=== PATIENT | female | born 1995 ===

== ENCOUNTER 2017-08-06 07:55 | Emergency (ER) | payer OTHER ==
[2017-08-06 07:59] VITALS: BMI 31.6
[2017-08-06 08:00] VITALS: BP 122/85; PULSE 67; RESP 16; TEMP 98.3; O2SAT 97
--- NOTE | 2017-08-06 08:13 | ED PDOC ---
HPI: Abdomen Time Seen by Provider: 08/06/17 08:01 Chief Complaint (Nursing): Abdominal Pain Chief Complaint (Provider): Abdominal Pain History Per: Patient History/Exam Limitations: no limitations Onset/Duration Of Symptoms: Other (x since this morning) Current Symptoms Are (Timing): Still Present Additional Complaint(s): 22-year-old female presents to ED with right flank and RLQ pain since this morning associated with nausea. (-) urinary symptoms, (-) diarrhea. PMD: Provider TBD Past Medical History Reviewed: Historical Data, Nursing Documentation, Vital Signs Vital Signs: Last Vital Signs Temp 98.3 F 08/06/17 07:59 Pulse 67 08/06/17 07:59 Resp 16 08/06/17 07:59 BP 122/85 08/06/17 07:59 Pulse Ox 97 08/06/17 09:49 - Medical History PMH: No Chronic Diseases - Surgical History Surgical History: Appendectomy (s/p) - Family History Family History: States: Unknown Family Hx - Social History Current smoker - smoking cessation education provided: No Alcohol: None Drugs: Denies - Home Medications Home Medications: Ambulatory Orders Medication Instructions Recorded traMADol [Ultram] 50 mg PO Q8 #10 tab 08/06/17 - Allergies Allergies/Adverse Reactions: Allergies Allergy/AdvReac Type Severity Reaction Status Date / Time aspirin Allergy RASH Verified 08/06/17 08:08 Review of Systems ROS Statement: Except As Marked, All Systems Reviewed And Found Negative Gastrointestinal: Positive for: Nausea, Abdominal Pain (RLQ pain), Other (Right flank pain). Negative for: Diarrhea Genitourinary Female: Negative for: Dysuria, Hematuria Physical Exam - Reviewed Nursing Documentation Reviewed: Yes Vital Signs Reviewed: Yes - Physical Exam Cardiovascular/Chest: Positive for: Regular Rate, Rhythm Respiratory: Positive for: Normal Breath Sounds. Negative for: Respiratory Distress Gastrointestinal/Abdominal: Positive for: Tenderness (Mild right mid and lower quadrant tenderness). Negative for: Other (Shepard's sign) Back: Positive for: Normal Inspection. Negative for: L CVA Tenderness, R CVA Tenderness Extremity: Negative for: Tenderness, Swelling - Laboratory Results Result Diagrams: 08/06/17 08:28 08/06/17 08:28 - ECG O2 Sat by Pulse Oximetry: 97 (RA) Pulse Ox Interpretation: Normal Medical Decision Making Medical Decision Making: Time: 08:07 Plan: - CMP - ED Urine Dipstick - ED Urine - CBC - Abdomen Limited (GB Included) Ultrasound - Transvaginal Ultrasound Time: 09:31 Abdomen Limited (GB Included) Ultrasound FINDINGS: LIVER: Measures 16.7 cm in length. Normal echogenicity of the liver parenchyma. No mass. No intrahepatic bile duct dilatation. GALLBLADDER: Unremarkable. No gallstones. . No evidence of pericholecystic fluid or sonographic Shepard's sign COMMON BILE DUCT: Measures 3.9 mm. No stones. No dilatation. PANCREAS: Unremarkable as visualized. No mass. No ductal dilatation. RIGHT KIDNEY: Measures 11.9 x 4.8 x 4.4 cm in length. Normal echogenicity. No calculus, mass, or hydronephrosis. AORTA: No aneurysmal dilatation. IVC: Unremarkable. OTHER FINDINGS: None . IMPRESSION: No acute findings. Time: 09:38 Transvaginal Ultrasound FINDINGS: UTERUS: Anteverted measuring approximately 6.9 x 5.2 x 3.7 cm. Cm. Normal in size and appearance. No fibroid or other mass lesion seen. ENDOMETRIUM: Measures 1.2 mm in diameter. Unremarkable. CERVIX: There is an approximately 1.4 x 0.74 cm nabothian cyst present. RIGHT OVARY: Measures 4.3 x 3.8 x 2.1 cm. No solid mass. Normal flow. . Least 2 para ovarian cyst present 1st measuring 1.5 cm x 1.1 x 1.2 in greatest dimension and the 2nd measuring 1.2 x 1.0 x 0.9 cm. Small amount of paraovarian fluid . LEFT OVARY: Measures 2.6 x 2.7 x 1.6 cm. No solid mass. Normal flow. Small paraovarian cyst measuring 2.3 x 1.7 x 1.6 cm FREE FLUID: No significant free fluid noted. OTHER FINDINGS: None. IMPRESSION: Small bilateral paraovarian cysts. Small amount of right paraovarian fluid. 1.2 cm Scribe Attestation: Documented by Reuben Alcaraz, acting as a scribe for Aron Myers MD Provider Scribe Attestation: All medical record entries made by the Scribe were at my direction and personally dictated by me. I have reviewed the chart and agree that the record accurately reflects my personal performance of the history, physical exam, medical decision making, and the department course for this patient. I have also personally directed, reviewed, and agree with the discharge instructions and disposition. Disposition - Clinical Impression Clinical Impression: Ovarian cyst - Patient ED Disposition Is Patient to be Admitted: No Counseled Patient/Family Regarding: Studies Performed, Diagnosis, Need For Followup, Rx Given - Disposition Referrals: [facility] [Outside] Disposition: Routine/Home Disposition Time: 10:07 Condition: FAIR Prescriptions: traMADol [Ultram] 50 mg PO Q8 #10 tab Instructions: Ovarian Cysts Forms: [facility] (Estonian) Print Language: KYRGYZ
[2017-08-06 08:39] LABS: BASO % 0.4 % (0.0-2.0); EOS # 0.1 K/uL (0.0-0.7); EOS % 0.9 % (0.0-4.0); HEMOGLOBIN 14.1 g/dL (12.0-16.0); LYMPH # 1.5 K/uL (1.0-4.3); LYMPH % 13.4 % (20.0-40.0); MEAN CELL VOLUME 90.9 fl (81.0-99.0); MEAN CORPUSCULAR HEMOGLOBIN 30.6 pg (27.0-31.0); MEAN CORPUSCULAR HGB CONC 33.7 g/dL (33.0-37.0); MEAN PLATELET VOLUME 7.1 fl (7.2-11.7); MONO # 0.4 K/uL (0.0-0.8); MONO % 3.8 % (0.0-10.0); NEUT # 9.2 K/uL (1.8-7.0); NEUT % 81.5 % (50.0-75.0); RBC 4.62 Mil/uL (3.80-5.20); RED CELL DISTRIBUTION WIDTH 12.7 % (11.5-14.5); WHITE BLOOD COUNT 11.3 K/uL (4.8-10.8)
[2017-08-06 08:51] LABS: ALB/GLOB RATIO 1.3 (1.0-2.1); ALBUMIN 4.3 g/dL (3.5-5.0); ALT/SGPT 31 U/L (9-52); AST/SGOT 22 U/L (14-36); BLOOD UREA NITROGEN 16 mg/dl (7-17); CALCIUM 9.3 mg/dL (8.4-10.2); GFR AFRICAN-AMERICAN > 60; GFR NON-AFRICAN AMERICAN > 60
--- NOTE | 2017-08-06 09:33 | US ---
HISTORY: Right flank pain. COMPARISON: None. TECHNIQUE: Sonographic evaluation of the right upper quadrant of the abdomen. FINDINGS: LIVER: Measures 16.7 cm in length. Normal echogenicity of the liver parenchyma. No mass. No intrahepatic bile duct dilatation. GALLBLADDER: Unremarkable. No gallstones. . No evidence of pericholecystic fluid or sonographic Shepard's sign COMMON BILE DUCT: Measures 3.9 mm. No stones. No dilatation. PANCREAS: Unremarkable as visualized. No mass. No ductal dilatation. RIGHT KIDNEY: Measures 11.9 x 4.8 x 4.4 cm in length. Normal echogenicity. No calculus, mass, or hydronephrosis. AORTA: No aneurysmal dilatation. IVC: Unremarkable. OTHER FINDINGS: None . IMPRESSION: No acute findings.
--- NOTE | 2017-08-06 09:39 | US ---
HISTORY: RLQ pain s/p appendectomy COMPARISON: None available. TECHNIQUE: Transvaginal sonographic evaluation of the pelvis. FINDINGS: UTERUS: Anteverted measuring approximately 6.9 x 5.2 x 3.7 cm. Cm. Normal in size and appearance. No fibroid or other mass lesion seen. ENDOMETRIUM: Measures 1.2 mm in diameter. Unremarkable. CERVIX: There is an approximately 1.4 x 0.74 cm nabothian cyst present. RIGHT OVARY: Measures 4.3 x 3.8 x 2.1 cm. No solid mass. Normal flow. . Least 2 para ovarian cyst present 1st measuring 1.5 cm x 1.1 x 1.2 in greatest dimension and the 2nd measuring 1.2 x 1.0 x 0.9 cm. Small amount of paraovarian fluid . LEFT OVARY: Measures 2.6 x 2.7 x 1.6 cm. No solid mass. Normal flow. Small paraovarian cyst measuring 2.3 x 1.7 x 1.6 cm FREE FLUID: No significant free fluid noted. OTHER FINDINGS: None. IMPRESSION: Small bilateral paraovarian cysts. Small amount of right paraovarian fluid. 1.2 cm
== END 2017-08-06 10:21 | disposition home or self-care (01) ==
LOC: H.ER 07:55
DX: N83.201 Unspecified ovarian cyst, right side (principal); N83.202 Unspecified ovarian cyst, left side

== ENCOUNTER 2017-10-03 08:53 | Emergency (ER) | payer OTHER, SELFPAY ==
[2017-10-03 09:02] VITALS: BP 109/72; PULSE 82; TEMP 98; O2SAT 99
[2017-10-03 09:05] VITALS: BMI 28.9
[2017-10-03] MEDS ORDERED: Sodium Chloride 0.9% 1,000 ML IV STA (09:34)
--- NOTE | 2017-10-03 09:44 | ED PDOC ---
HPI: Abdomen Time Seen by Provider: 10/03/17 09:07 Chief Complaint (Nursing): Abdominal Pain Chief Complaint (Provider): Abdominal pain History Per: Patient History/Exam Limitations: no limitations Onset/Duration Of Symptoms: Days (x3), Other (constant) Current Symptoms Are (Timing): Still Present Associated Symptoms: Nausea, Vomiting. denies: Diarrhea, Constipation, Urinary Symptoms Additional Complaint(s): 22 year old female, with a past medical history of ovarian cyst, presents to the ED complaining of constant lower abdominal pain with onset of 3 days associated with nausea and 2 episodes of non bloody vomiting. Patient denies constipation, diarrhea, vaginal bleeding, dysuria, and hematuria. LNMP August 13. PCP: none Past Medical History Reviewed: Historical Data, Nursing Documentation, Vital Signs Vital Signs: Last Vital Signs Temp 98 F 10/03/17 09:01 Pulse 82 10/03/17 09:01 Resp BP 109/72 10/03/17 09:01 Pulse Ox 99 10/03/17 10:55 - Medical History Other PMH: Ovarian cyst - Surgical History Surgical History: Appendectomy (s/p) - Family History Family History: States: Unknown Family Hx - Social History Current smoker - smoking cessation education provided: No Alcohol: None Drugs: Denies - Home Medications Home Medications: Ambulatory Orders Medication Instructions Recorded traMADol [Ultram] 50 mg PO Q8 #10 tab 08/06/17 Doxylamine/Pyridoxine HCl (B6) 1 each PO DAILY PRN #10 tablet. 10/03/17 [Sunday Mireles 10-10 mg Tablet] Vit Calc,Iron,Folic 1 each PO DAILY #30 tablet 10/03/17 [ Vitamins] - Allergies Allergies/Adverse Reactions: Allergies Allergy/AdvReac Type Severity Reaction Status Date / Time aspirin Allergy RASH Verified 08/06/17 08:08 Review of Systems ROS Statement: Except As Marked, All Systems Reviewed And Found Negative Gastrointestinal: Positive for: Nausea, Vomiting, Abdominal Pain. Negative for : Diarrhea, Constipation Genitourinary Female: Negative for: Dysuria, Hematuria, Vaginal Bleeding Physical Exam - Reviewed Nursing Documentation Reviewed: Yes Vital Signs Reviewed: Yes - Physical Exam Appears: Positive for: Non-toxic, No Acute Distress Head Exam: Positive for: ATRAUMATIC, NORMOCEPHALIC Skin: Positive for: Normal Color, Warm, Dry Eye Exam: Positive for: Normal appearance Neck: Positive for: Normal, Painless ROM Cardiovascular/Chest: Positive for: Regular Rate, Rhythm. Negative for: Murmur Respiratory: Positive for: Normal Breath Sounds. Negative for: Wheezing, Respiratory Distress Gastrointestinal/Abdominal: Positive for: Normal Exam, Soft. Negative for: Tenderness Extremity: Positive for: Normal ROM Neurologic/Psych: Positive for: Alert, Oriented. Negative for: Motor/Sensory Deficits - Laboratory Results Result Diagrams: 10/03/17 09:42 10/03/17 09:42 - ECG O2 Sat by Pulse Oximetry: 99 (RA) Pulse Ox Interpretation: Normal Medical Decision Making Medical Decision Making: Initial Impression: abdominal pain Initial Plan: --Beta HCG --CMP --ED urine --ED urine dipstick --CBC --Sodium chloride 1000mL IV --Reglan 10mg IV --Urinalysis --US preg 1st Tri test was positive. Accession No. : [id number] Patient Name / ID : COMFORT LE / [id number] Exam Date : 10/03/2017 11:14:38 ( Approved ) Study Comment : Sex / Age : F / 22Y Creator : Александр Miramontes MD Dictator : Александр Miramontes MD [facility] : Forms Examiner : Александр Miramontes MD Approver2 : Report Date : 10/03/2017 11:53:06 My Comment : PROCEDURE: HISTORY: Lower abd pain COMPARISON: TECHNIQUE: FINDINGS: The uterus is normal in size. There is an intrauterine gestational sac with pole and heart motion. Fisher-rump length is 9 millimeters corresponding to 6 weeks and 6 days gestational age. There is a left paraovarian cyst measuring 2.4 centimeters as well as a hemorrhagic cyst/ corpus luteum measuring 2.0 centimeters. There is no free fluid in the pelvis. IMPRESSION: As above. Scribe Attestation: Documented by Carter Banegas acting as a scribe for Denise Potter MD. Provider Scribe Attestation: All medical record entries made by the Scribe were at my direction and personally dictated by me. I have reviewed the chart and agree that the record accurately reflects my personal performance of the history, physical exam, medical decision making, and the department course for this patient. I have also personally directed, reviewed, and agree with the discharge instructions and disposition. Disposition - Clinical Impression Clinical Impression: Abdominal pain during - Disposition Referrals: [facility] [Outside] [facility] [Outside] Disposition: Routine/Home Disposition Time: 12:30 Condition: STABLE Prescriptions: Doxylamine/Pyridoxine HCl (B6) [Sunday Mireles 10-10 mg Tablet] 1 each PO DAILY PRN #10 tablet.dr [place] Reason: Nausea/Vomiting Vit Calc,Iron,Folic [ Vitamins] 1 each PO DAILY #30 tablet Instructions: Nausea and Vomiting of , - The Second Month Forms: [employer] (Thai) Print Language: YI
[2017-10-03 09:48] LABS: BASO % 0.3 % (0.0-2.0); EOS # 0.1 K/uL (0.0-0.7); EOS % 0.8 % (0.0-4.0); HEMOGLOBIN 13.8 g/dL (12.0-16.0); LYMPH # 1.4 K/uL (1.0-4.3); LYMPH % 15.3 % (20.0-40.0); MEAN CELL VOLUME 91.8 fl (81.0-99.0); MEAN CORPUSCULAR HEMOGLOBIN 31.8 pg (27.0-31.0); MEAN CORPUSCULAR HGB CONC 34.7 g/dL (33.0-37.0); MONO # 0.4 K/uL (0.0-0.8); MONO % 4.8 % (0.0-10.0); NEUT # 7.2 K/uL (1.8-7.0); NEUT % 78.8 % (50.0-75.0); RBC 4.35 Mil/uL (3.80-5.20); RED CELL DISTRIBUTION WIDTH 12.7 % (11.5-14.5); WHITE BLOOD COUNT 9.1 K/uL (4.8-10.8)
[2017-10-03 09:55] LABS: ALB/GLOB RATIO 1.5 (1.0-2.1); ALBUMIN 4.2 g/dL (3.5-5.0); ALT/SGPT 24 U/L (9-52); AST/SGOT 16 U/L (14-36); BLOOD UREA NITROGEN 11 mg/dl (7-17); CALCIUM 9.2 mg/dL (8.4-10.2); GFR AFRICAN-AMERICAN > 60; GFR NON-AFRICAN AMERICAN > 60
[2017-10-03] MEDS ORDERED: Potassium Chloride 20 mEq ER Tab PO STA (09:57)
[2017-10-03 10:44] LABS: SQUAMOUS EPITHIAL 22 /hpf (0-5); URINE BACTERIA RARE (<OCC); URINE BILIRUBIN NEGATIVE (NEGATIVE); URINE BLOOD NEGATIVE (NEGATIVE); URINE CLARITY CLOUDY (Clear); URINE COLOR YELLOW (YELLOW); URINE GLUCOSE (UA) NEG (Normal); URINE LEUKOCYTE ESTERASE TRACE Leu/uL (Negative); URINE PROTEIN 30 mg/dL (NEGATIVE); URINE UROBILINOGEN 0.2-1.0 mg/dL (0.2-1.0)
[2017-10-03] MEDS ORDERED: Potassium Chloride 20 mEq ER Tab PO ONE (11:37)
--- NOTE | 2017-10-03 11:54 | US ---
PROCEDURE: HISTORY: Lower abd pain COMPARISON: TECHNIQUE: FINDINGS: The uterus is normal in size. There is an intrauterine gestational sac with pole and heart motion. Neola-rump length is 9 millimeters corresponding to 6 weeks and 6 days gestational age. There is a left paraovarian cyst measuring 2.4 centimeters as well as a hemorrhagic cyst/ corpus luteum measuring 2.0 centimeters. There is no free fluid in the pelvis. IMPRESSION: As above.
== END 2017-10-03 12:40 | disposition home or self-care (01) ==
LOC: H.ER 08:53
DX: O26.899 Other specified pregnancy related conditions, unspecified trimester (principal); O34.81 Maternal care for other abnormalities of pelvic organs, first trimester; N83.202 Unspecified ovarian cyst, left side
CPT/HCPCS: 76815; 76817; 80053; 81003; 81025; 84702; 85025; 96374; 99285; J2765; J7030